=== PATIENT | female | born 1965 | race African-American/Black ===

== ENCOUNTER 2018-06-08 07:00 | Emergency (ER) | payer SELFPAY ==
[~2018-06-08] VITALS: Ht 175.3 cm; Wt 87.2 kg
[~2018-06-08 07:00] MED LIST: ASPIRIN81 MG PO; ATENOLOL50 MG PO; FLEXERIL PO; GLIPIZIDE5 MG PO; MELOXICAM7.5 MG PO; METFORMIN500 MG PO; NAPROSYN500 MG PO; NIFEDIPINE60 MG PO; PRAVASTATIN10 MG PO; RANITIDINE150 M1 PO
[2018-06-08] MEDS ORDERED: LOPRESSOR 550 MG/TAB PO (07:27)
[2018-06-08] MEDS ORDERED: METFORMIN HCL1000 MG PO (07:29)
[2018-06-08] MEDS ORDERED: NIFEDIPINE ER60 M1 PO (07:30)
[2018-06-08] MEDS ORDERED: ROSUVASTATIN CA20 MG PO (07:30)
[2018-06-08] MEDS ORDERED: SM ASPIRIN ADUL81 MG PO (07:31)
[2018-06-08] MEDS ORDERED: ESOMEPRAZOLE MA40 MG PO (07:31)
[2018-06-08 07:57] LABS: HEMATOCRIT 37.2 % (37.0-47.0); IMMATURE GRANULOCYTES 0.2 % (0.0-5.0); MEAN CELL VOLUME 80.5 fL CALC (80.0-100.0); MEAN CORPUSCULAR HGB CONC 32.3 g/L CALC (32.0-36.0); NEUT# 1.66 thou/uL (2.00-7.15); RED BLOOD COUNT 4.62 mill/uL (4.20-5.60); RED CELL DISTRI WIDTH 13.1 % (11.5-15.5)
[2018-06-08 07:58] LABS: URINE BILIRUBIN - DIPSTICK NEGATIVE (NEGATIVE); URINE BLOOD DIPSTICK NEGATIVE (NEGATIVE); URINE COLOR YELLOW; URINE GLUCOSE - DIPSTICK NEGATIVE (NEGATIVE); URINE KETONE NEGATIVE (NEGATIVE); URINE LEUK ESTERASE NEGATIVE (NEGATIVE); URINE NITRITE - DIPSTICK NEGATIVE (Negative); URINE PH 7.5 (4.5-8.0); URINE PROTEIN - DIPSTICK NEGATIVE (NEG-TRACE); URINE SPECIFIC GRAVITY 1.015; URINE UROBILINOGEN - DIPSTICK 0.2 E.U./dL (0.2)
[2018-06-08 08:25] LABS: ALBUMIN 4.5 g/dL (3.2-5.0); ALKALINE PHOSPHATASE 110 u/l (38-126); ANION GAP 15 (6-22 (CALC)); BILIRUBIN, TOTAL 0.4 mg/dL (0.0-1.4); BUN 14 mg/dL (7-17); BUN/CREATININE RATIO 20 (12-20 (CALC)); CARBON DIOXIDE 25 mmol/l (22-30); CHLORIDE 106 mmol/l (95-108); CREATININE 0.7 mg/dL (0.5-1.0); GFR > 60 ML/MIN (>=60 (CALC)); GFR FOR AFR.AMER. > 60 ML/MIN (>=60 (CALC)); POTASSIUM 3.8 mmol/l (3.5-5.1); SGOT/AST 26 u/l (14-36); SODIUM 142 mmol/l (137-146); TOTAL PROTEIN 8.1 g/dL (6.3-8.2)
[2018-06-08] MEDS ORDERED: TORADOL PO (08:45)
[2018-06-08] MEDS ORDERED: FLEXERIL PO (08:46)
[2018-06-08 09:30] VITALS: BP 148/80
== END 2018-06-08 09:30 | disposition home or self-care (01) | DRG 563 ==
LOC: ED 07:00
PROVIDERS: Emergency Medicine
DX: S39.012A Strain of muscle, fascia and tendon of lower back, initial encounter (principal); E11.9 Type 2 diabetes mellitus without complications; I10 Essential (primary) hypertension; X58.XXXA Exposure to other specified factors, initial encounter

== ENCOUNTER 2018-11-20 19:28 | Emergency (ER) | payer SELFPAY ==
[~2018-11-20] VITALS: Ht 175.3 cm; Wt 95.0 kg
[~2018-11-20 19:28] MED LIST changes: +ESOMEPRAZOLE MA40 MG PO; +LOPRESSOR 550 MG/TAB PO; +METFORMIN HCL1000 MG PO; +NIFEDIPINE ER60 M1 PO; +ROSUVASTATIN CA20 MG PO; +SM ASPIRIN ADUL81 MG PO; +TORADOL PO
[2018-11-20] MEDS ORDERED: MOTRIN800 MG PO (20:59)
[2018-11-20 21:08] VITALS: BP 136/80
== END 2018-11-20 21:25 | disposition home or self-care (01) | DRG 605 ==
LOC: ED 19:28
DX: S80.11XA Contusion of right lower leg, initial encounter (principal); I10 Essential (primary) hypertension; E11.9 Type 2 diabetes mellitus without complications; W01.0XXA Fall on same level from slipping, tripping and stumbling without subsequent striking against object, initial encounter; Y92.89 Other specified places as the place of occurrence of the external cause; Y99.0 Civilian activity done for income or pay

== ENCOUNTER 2021-02-22 04:02 | Emergency (ER) | payer SELFPAY ==
[~2021-02-22] VITALS: Ht 175.3 cm; Wt 82.0 kg
[~2021-02-22 04:02] MED LIST changes: +MOTRIN800 MG PO
[2021-02-22] MEDS ORDERED: METFORMIN HYD1000 MG PO (04:24)
[2021-02-22] MEDS ORDERED: NIFEDIPINE60 M1 PO (04:25)
[2021-02-22 05:02] LABS: HEMATOCRIT 35.8 % (37.0-47.0); HEMOGLOBIN 11.6 g/dl (12.0-16.0); IMMATURE GRANULOCYTES 0.4 % (0.0-5.0); MEAN CELL VOLUME 80.4 fL CALC (80.0-100.0); MEAN CORPUSCULAR HGB 26.1 pG CALC (26.0-32.0); MEAN CORPUSCULAR HGB CONC 32.4 g/dL CAL (32.0-36.0); NEUT# 3.32 thou/uL (2.00-7.15); RED BLOOD COUNT 4.45 mill/uL (4.20-5.60); RED CELL DISTRI WIDTH 13.2 % (11.5-15.5)
[2021-02-22 05:22] LABS: ALBUMIN 4.2 g/dL (3.2-5.0); ALKALINE PHOSPHATASE 85 u/l (38-126); AMYLASE 59 u/l (30-110); ANION GAP 14 (6-22 (CALC)); BILIRUBIN, TOTAL 0.4 mg/dL (0.0-1.4); BUN 6 mg/dL (7-17); BUN/CREATININE RATIO 9 (12-20 (CALC)); CARBON DIOXIDE 25 mmol/l (22-30); CHLORIDE 108 mmol/l (95-108); CREATININE 0.7 mg/dL (0.5-1.0); GFR > 60 ML/MIN (>=60 (CALC)); GFR FOR AFR.AMER. > 60 ML/MIN (>=60 (CALC)); LIPASE 37 u/l (23-300); POTASSIUM 3.9 mmol/l (3.5-5.1); SGOT/AST 19 u/l (14-36); SODIUM 144 mmol/l (137-146); TOTAL PROTEIN 8.1 g/dL (6.3-8.2)
[2021-02-22 05:25] LABS: URINE BILIRUBIN - DIPSTICK NEGATIVE (NEGATIVE); URINE BLOOD DIPSTICK TRACE-INTACT (NEGATIVE); URINE COLOR YELLOW; URINE GLUCOSE - DIPSTICK NEGATIVE (NEGATIVE); URINE KETONE NEGATIVE (NEGATIVE); URINE LEUK ESTERASE NEGATIVE (NEGATIVE); URINE PROTEIN - DIPSTICK NEGATIVE (NEG-TRACE); URINE UROBILINOGEN - DIPSTICK 0.2 E.U./dL (0.2)
[2021-02-22 05:26] LABS: URINE NITRITE - DIPSTICK NEGATIVE (Negative)
[2021-02-22] MEDS ORDERED: MIRALAX17 GM PO (07:48)
[2021-02-22 08:05] VITALS: BP 143/85
== END 2021-02-22 08:05 | disposition home or self-care (01) | DRG 392 ==
LOC: ED 04:02
DX: K59.00 Constipation, unspecified (principal); E11.9 Type 2 diabetes mellitus without complications; I10 Essential (primary) hypertension; Z79.84 Long term (current) use of oral hypoglycemic drugs
CPT/HCPCS: Q9967

== ENCOUNTER 2021-02-23 15:06 | Emergency (ER) | payer SELFPAY ==
[~2021-02-23] VITALS: Ht 172.7 cm; Wt 80.0 kg
[~2021-02-23 15:06] MED LIST changes: +METFORMIN HYD1000 MG PO; +MIRALAX17 GM PO; +NIFEDIPINE60 M1 PO
[2021-02-23 15:15] VITALS: BP 159/91
[2021-02-23 16:08] LABS: HEMATOCRIT 36.6 % (37.0-47.0); HEMOGLOBIN 11.9 g/dl (12.0-16.0); IMMATURE GRANULOCYTES 0.1 % (0.0-5.0); MEAN CELL VOLUME 80.3 fL CALC (80.0-100.0); MEAN CORPUSCULAR HGB 26.1 pG CALC (26.0-32.0); MEAN CORPUSCULAR HGB CONC 32.5 g/dL CAL (32.0-36.0); NEUT# 2.89 thou/uL (2.00-7.15); RED BLOOD COUNT 4.56 mill/uL (4.20-5.60); RED CELL DISTRI WIDTH 13.1 % (11.5-15.5)
[2021-02-23 16:23] LABS: ALBUMIN 4.3 g/dL (3.2-5.0); ALKALINE PHOSPHATASE 88 u/l (38-126); ANION GAP 12 (6-22 (CALC)); BILIRUBIN, TOTAL 0.4 mg/dL (0.0-1.4); BUN 10 mg/dL (7-17); BUN/CREATININE RATIO 12 (12-20 (CALC)); CARBON DIOXIDE 28 mmol/l (22-30); CHLORIDE 106 mmol/l (95-108); CREATININE 0.8 mg/dL (0.5-1.0); GFR > 60 ML/MIN (>=60 (CALC)); GFR FOR AFR.AMER. > 60 ML/MIN (>=60 (CALC)); POTASSIUM 3.7 mmol/l (3.5-5.1); SGOT/AST 21 u/l (14-36); SODIUM 142 mmol/l (137-146); TOTAL PROTEIN 8.7 g/dL (6.3-8.2)
== END 2021-02-23 17:10 | disposition home or self-care (01) | DRG 392 ==
LOC: ED 15:06
PROVIDERS: Emergency Medicine
DX: K59.00 Constipation, unspecified (principal); E11.9 Type 2 diabetes mellitus without complications; I10 Essential (primary) hypertension; Z79.84 Long term (current) use of oral hypoglycemic drugs